=== PATIENT | male | born 2000 | race Caucasian/White ===

== ENCOUNTER 2024-05-06 20:47 | Emergency (ER) | payer SELFPAY ==
[2024-05-06] MEDS ORDERED: Ibuprofen 200 MG TAB ONE (22:39)
[2024-05-06] MEDS ORDERED: Boostrix 0.5 ML (Tdap) VIAL (>/=7 yrs of age) ONE (22:39)
[2024-05-06] MEDS ORDERED: Lidocaine 1% (PF) 30 ML VIAL ONE (23:52)
[2024-05-07] MEDS ORDERED: Bacitracin 1 PK ONE (00:25)
== END 2024-05-07 01:30 | disposition home or self-care (01) ==
LOC: CSHERS 20:47
DX: S06.0X0A Concussion without loss of consciousness, initial encounter (principal); S00.432A Contusion of left ear, initial encounter; M25.511 Pain in right shoulder; Z55.6 Problems related to health literacy; Y04.2XXA Assault by strike against or bumped into by another person, initial encounter; Z23 Encounter for immunization
CPT/HCPCS: 70450; 72125; 90471; 90715; 93005